=== PATIENT | female | born 1960 | race Caucasian/White ===

== ENCOUNTER 2017-04-04 19:42 | Emergency (ER) | payer OTHER ==
--- NOTE | ~2017-04-04 | CR219 ---
[facility] A Service of [facility] & [facility] RADIOLOGY TEXT RESULTS PATIENT: LAN TRAORE LOCATION: SED : 64 UNIT #: [id number] AGE: [address]: POLINA LEONARDO SEX: F ORDER DR: [id number] [address] [address] [id number] MR#: [id number] Acc #: [id number] NAME: LAN TRAORE : 1960 SEX: F STUDY DATE/TIME: 04/04/2017 20:17 UNIT: SED ROOM: STUDY DESCRIPTION: CR Sacrum and Coccyx Min 2 Vie Attending Physician: Polina Leonardo Aprn Ordering Physician: Polina Leonardo Aprn Primary Care Physician: Primary Care Physician No MEDICAL IMAGING REPORT This report is preliminary unless electronic signature is present. EXAM Sacrococcygeal series 04/04/2017 HISTORY Trauma 3 days. Previous fracture of coccyx 3 years ago. Jumped into pool and struck coccyx on bottom. FINDINGS AP inlet and lateral views of the sacrum and coccyx are presented. Comparison to CT examination 01/04/2014. Status post L4-L5 posterior fusion with bilateral transpedicular screws and fixation rods at these levels. Intervertebral disc spacer L4-L5. Slight retrolisthesis of L4 on L5. Appearance is unchanged from the prior CT. The bony ring of pelvis is intact. The sacroiliac joints and sacral arcuate lines are intact. There is anterior cortex buckling of the lower sacrum/upper coccyx on the lateral view. Not present on prior CT examination in 2013. Age indeterminate appearance but in the context of acute trauma, an acute buckle fracture is favored. I do not see a complete fcdrcvp-ehy-uwzhaql fracture of the inferior sacrum/upper coccyx. The bilateral hip joints are intact. Bilateral proximal femurs are intact. Bowel gas pattern normal. Calcified phleboliths pelvis. IMPRESSION 1. In comparison to CT pelvis 01/04/2014, there is anterior buckling of anterior cortex at level of the lower sacrum/upper coccyx seen on the lateral view. The appearance is somewhat age indeterminate. Acute buckle fracture cannot be excluded given the patient's history of recent trauma. No yzrztff-yyu-lgrxwoj fracture is visualized. This appearance is new compared to the prior CT examination. 2. No other potential acute bony abnormalities are seen. 3. Orthopedic L4-L5 fusion as described above. [facility]. [facility] A Service of [facility] RADIOLOGY TEXT RESULTS PATIENT: LAN TRAORE [place] [facility] [place] 64 UNIT #: [id number] AGE: [address]: POLINA LEONARDO SEX: F ORDER DR: 4. The bilateral hip joints are intact. Periarticular soft tissues unremarkable. No soft tissue defect, subcutaneous air or nonorthopedic radiodense foreign body. Dictated by... Ramiro Braxton M.D. THIS IS AN ELECTRONICALLY VERIFIED REPORT Ramiro Braxton M.D. at 04/05/2017 8:14 AM SABA/anette TD: 04/05/2017 07:21 JOB #: [id number] MEDICAL IMAGING REPORT Page 1 of 1
[~2017-04-04 19:42] MED LIST: ACTOS30 MG PO; ALBUTEROL17 GM INH; ALPRAZOLAM ER2 MG PO; AMBIEN PO; AMBIEN10 MG PO; BACTRIM DS TABL1 TA1 PO; BACTRIM DS TABL1 TA2 PO; CIPRO PO; DIAZEPAM PO; FISH OIL 1,0001 CAP PO; FLEXERIL10 MG PO; GLIPIZIDE10 MG PO; GLUCOTROL PO; IBUPROFEN800 MG PO; JANUVIA PO; JANUVIA100 MG PO; JANUVIA50 MG PO; KEFLEX500 M1 PO; KLONOPIN1 MG PO; LEVEMIR100 UNITS/; LORTAB 10/500 T1 TAB PO; MEDROL PO; NAPROSYN-EC500 MG PO; NEURONTIN300 MG PO; NEURONTIN600 MG PO; NORCO 5/325 TAB1 TAB PO; OMEGA 3; PEN-VEE K PO; PERCOCET 10/3251 TAB PO; PERCOCET PO; PERCOCET10 PO; PERCOCET5/325 PO; PHENERGAN25 MG PO; ROBAXIN500 MG PO; ROBITUSSIN A-C S5 ML PO; TYLENOL #3 PO; TYLENOL PM EX-S1 TA4; VICODIN 5/1 TAB 5/50 PO; VOLTAREN75 MG PO; ZOFRANODT PO
[2017-04-04] MEDS ORDERED: ZETIA (19:58)
[2017-04-04] MEDS ORDERED: ZOCOR (19:58)
== END 2017-04-04 21:41 | disposition home or self-care (01) ==
LOC: SED 19:42
DX: S30.0XXA Contusion of lower back and pelvis, initial encounter (principal); E10.9 Type 1 diabetes mellitus without complications; F17.210 Nicotine dependence, cigarettes, uncomplicated; Z88.8 Allergy status to other drugs, medicaments and biological substances; Z79.4 Long term (current) use of insulin; Z79.899 Other long term (current) drug therapy; W17.89XA Other fall from one level to another, initial encounter; Y92.009 Unspecified place in unspecified non-institutional (private) residence as the place of occurrence of the external cause
CPT/HCPCS: 72220; 99283